=== PATIENT | female | born 1960 | race Caucasian/White ===

== ENCOUNTER 2017-12-26 05:56 | Emergency (ER) | payer OTHER, SELFPAY ==
[2017-12-26 05:57] VITALS: BP 164/94; PULSE 94; RESP 16; TEMP 36.8; O2SAT 99; BMI 23.9
--- NOTE | 2017-12-26 06:02 | CT_ITS ---
STUDY: CT BRAIN WITHOUT CONTRAST REASON FOR EXAM: Female, 57 years old. Injury RADIATION DOSAGE (If Supplied By Facility): CTDIvol = ( 44.99 ) mGy, DLP = ( 745.49 ) mGycm TECHNIQUE: Transaxial CT imaging of the brain was performed without administration of intravenous contrast material. Individualized dose optimization techniques were used for this CT. COMPARISON: None. FINDINGS: There is a scalp hematoma involving the left and right frontal areas. There are no calvarial fractures. There is no intra or extra-axial hemorrhage or tumor mass and no indication of acute infarction. The ventricles, basal cisterns and cortical sulci are normal with no midline shift. The orbits, paranasal sinuses and mastoid air cells are normal.. CT/Brain/Head without Contrast IMPRESSION: Scalp hematoma in both the left and right frontal areas. No calvarial fracture. No acute findings in the brain Electronically Signed: Sulaiman Castillo MD at 6:23 EDT Tel , Service support ,
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
--- NOTE | 2017-12-26 06:41 | ED.DEP ---
ED Disposition - Plan for ED Patient: Disposition: Home or Assisted Living Chief Complaint: Head Injury Instructions: ED Contusion Face Referrals: Kurtis Quintanilla MD [Primary Care Provider] -
--- NOTE | 2017-12-26 06:42 | ED.RN ---
THIS RN IRRIGATED BOTH PT'S EYE MANUALLY WITH 700ML OF NORMAL SALINE. BACITRACIN OPHTHALMIC OINTMENT PLACED IN BOTH EYES.
[2017-12-26 06:44] VITALS: BP 158/81; PULSE 85; RESP 16; O2SAT 96
== END 2017-12-26 07:25 | disposition home or self-care (01) ==
PROVIDERS: Emergency Provider Emergency Medicine; Family Provider Family Medicine; PCP Family Medicine
DX: S00.03XA Contusion of scalp, initial encounter (principal); W55.32XA Struck by other hoof stock, initial encounter; V89.2XXA Person injured in unspecified motor-vehicle accident, traffic, initial encounter; H11.32 Conjunctival hemorrhage, left eye; H10.9 Unspecified conjunctivitis; Y92.410 Unspecified street and highway as the place of occurrence of the external cause; Y99.8 Other external cause status
CPT/HCPCS: 70450; 99285; J7030